=== PATIENT | female | born 1995 | race Two or more races ===

== ENCOUNTER 2023-05-21 05:37 | Emergency (ER) | payer MEDICAID, OTHER ==
[~2023-05-21] VITALS: Ht 157.5 cm; Wt 72.7 kg
[2023-05-21 05:49] VITALS: TEMP 98.1
[2023-05-21] MEDS ORDERED: LORazepam 1 MG TABLET PO ONE (07:00)
[2023-05-21 09:45] VITALS: BP 145/95; PULSE 97; RESP 18
== END 2023-05-21 10:07 | disposition home or self-care (01) ==
LOC: EMS 05:38
DX: F45.8 Other somatoform disorders (principal); F17.210 Nicotine dependence, cigarettes, uncomplicated; F15.90 Other stimulant use, unspecified, uncomplicated
CPT/HCPCS: 99283